=== PATIENT | female | born 1975 | race Caucasian/White ===

== ENCOUNTER 2017-03-27 16:00 | Emergency (ER) | payer OTHER ==
[~2017-03-27] VITALS: Ht 172.7 cm; Wt 80.0 kg
[2017-03-27 16:04] VITALS: BP 126/84; PULSE 89; RESP 13; TEMP 98.8; O2SAT 99
--- NOTE | 2017-03-27 16:12 | PD ---
Physical Exam Time Seen by Provider: 16:10 Narrative 42-year-old female complaining of lower dental pain and jaw pain after her teeth got knocked out by a table a day and a half ago. Can open and close jaw completely in triage. Also complaining of lower abdominal pain 3 weeks. Last menstrual period 5 days ago. History of prolapsed uterus. Denies vaginal discharge, odor, bleeding. Denies fever, vomiting. Reports nausea. Patient seen in triage. Vital signs reviewed. Patient awaiting bed placement. Data Data Last Documented VS Vital Signs Date Time Temp Pulse Resp B/P (MAP) Pulse Ox O2 Delivery O2 Flow Rate FiO2 03/27/17 16:04 98.8 89 13 126/84 (98) 99 MDM Supervised Visit with [facility]: Mali Clark Mar 27, 2017 16:12
--- NOTE | 2017-03-27 17:00 | PD ---
HPI Chief Complaint: Pain: Acute or Chronic Time Seen by Provider: 16:45 Travel History International Travel<30 days: No Contact w/Intl Traveler<30days: No Traveled to known affect area: No History of Present Illness HPI 42-year-old female presents to the emergency department for evaluation of jaw pain after getting hit with a table while trying to lift it up stairs yesterday. Patient denies any loss of consciousness with the event. Patient's left mandibular central incisor was broken as a result of this event. The portion that is remaining is vazquez discolored and tilted in a posterior angle. Patient denies any chest pain, shortness of breath, fever, chills, malaise, nausea, vomiting or diarrhea. Patient does complain of abdominal pain. The pain is diffuse but there is no guarding or rebound tenderness upon palpation. Patient states she has had a white frothy vaginal discharge for approximately 3 weeks. Patient denies any new sexual partners, chance for or history of STIs. PFSH Past Medical History ?: Not LMP: 03/22/17 Past Surgical History Appendectomy: Yes Social History Alcohol Use: No Tobacco Use: No Substance Use: No Allergies-Medications (Allergen,Severity, Reaction): Coded Allergies: No Known Allergies (Unverified , 03/27/17) Reported Meds & Prescriptions Reported Meds & Active Scripts Active Tramadol (Tramadol HCl) 50 Mg Tab 50 Mg PO Q6H PRN Review of Systems Except as stated in HPI: all other systems reviewed are Neg Physical Exam Narrative GENERAL: Well-nourished well-developed 42-year-old female in no acute distress SKIN: Focused skin assessment warm/dry. HEAD: Atraumatic. Normocephalic. EYES: Pupils equal and round. No scleral icterus. No injection or drainage. ENT: No nasal bleeding or discharge. Mucous membranes pink and moist. NECK: Trachea midline. No JVD. CARDIOVASCULAR: Regular rate and rhythm. No murmur appreciated. RESPIRATORY: No accessory muscle use. Clear to auscultation. Breath sounds equal bilaterally. GASTROINTESTINAL: Abdomen soft, non-tender, nondistended. Hepatic and splenic margins not palpable. MUSCULOSKELETAL: No obvious deformities. No clubbing. No cyanosis. No edema. NEUROLOGICAL: Awake and alert. No obvious cranial nerve deficits. Motor grossly within normal limits. Normal speech. PSYCHIATRIC: Appropriate mood and affect; insight and judgment normal. GENITOURINARY: Normal external genitalia without lesions or erythema. Vaginal vault without blood but small amount of white frothy drainage noted. Cervical os was closed with white frothy drainage. Cervical motion tenderness present. Uterus prolapsed. Bilateral adnexa tender but without masses. Data Data Last Documented VS Vital Signs Date Time Temp Pulse Resp B/P (MAP) Pulse Ox O2 Delivery O2 Flow Rate FiO2 03/27/17 16:04 98.8 89 13 126/84 (98) 99 Orders Orders Urinalysis - C+S If Indicated (03/27/17 16:18) Ed Urine Pregnancytest Poc (03/27/17 16:18) Ct Facial Bones W/O Iv Cont (03/27/17 16:39) Gc And Chlamydia Pcr (03/27/17 17:07) Wet Prep Profile (03/27/17 17:07) Ketorolac Inj (Toradol Inj) (03/27/17 18:00) Azithromycin Powd Pack (Zithromax Powd P (03/27/17 18:00) Ceftriaxone Inj (Rocephin Inj) (03/27/17 18:00) Lidocaine 1% Inj (50 Ml) (Xylocaine 1% I (03/27/17 18:00) Labs Laboratory Tests Test 03/27/17 17:16 03/27/17 17:33 Urine Color LIGHT-YELLOW Urine Turbidity HAZY Urine pH 6.0 Urine Specific [place] 1.019 Urine Protein NEG mg/dL Urine Glucose (UA) NEG mg/dL Urine Ketones NEG mg/dL Urine Occult Blood NEG Urine Nitrite NEG Urine Bilirubin NEG Urine Urobilinogen LESS THAN 2.0 MG/DL Urine Leukocyte Esterase TRACE Urine WBC 2 /hpf Urine Squamous Epithelial Cells 4 /hpf Microscopic Urinalysis Comment CULT NOT INDICATED Clue Cells (Wet Prep) NONE SEEN Vaginal Trichomonas (Wet Prep) NONE SEEN Vaginal Yeast (Wet Prep) NONE SEEN MDM Medical Decision Making Medical Screen Exam Complete: Yes Emergency Medical Condition: Yes Medical Record Reviewed: Yes Differential Diagnosis Differential diagnoses include but not limited to facial contusion, facial fracture, dental trauma, STI, bacterial vaginosis, PID Narrative Course 42-year-old female presents to emergency department for evaluation of facial trauma that she sustained yesterday when trying to transport a table upstairs. She was below the table and slipped out of her hand and hit her in the face. In the course of the trauma and the patient's left central mandibular incisor was broken. The remaining portion of the tooth that is still intact is vazquez in color and tilted in a posterior angle. Patient denies any loss of consciousness during the event. Patient denies any chest pain, fevers, shortness of breath, chills, malaise, vomiting, nausea, diarrhea or lightheadedness. Patient would also like to be evaluated for lower abdominal pain with white frothy vaginal discharge 3 weeks while she is in the emergency department. CT of the facial bones without contrast, UA, GC and chlamydia and wet prep ordered and pending. Pelvic exam performed with skilled nursing case manager resident. Cultures obtained during exam. Patient tolerated procedure well but did have cervical motion tenderness. CT of the facial bones reveals no acute bony injury within the mandible appear intact. Patient prophylactically treated for STI with 250 mg IM Rocephin with lidocaine and 1 G Azithromycin while cultures are pending. Patient given 60 mg IM Toradol for facial pain. Patient case discussed with my attending Dr. Blackwell. Patient will be discharged home with prescription for tramadol by mouth as needed for pain and a prescription for Flagyl twice a day 7 days for treatment of bacterial vaginosis. Patient given instructions to follow up with primary care physician and dentist regarding damaged tooth. Patient given instructions to return to the emergency Department with any worsening symptoms. Diagnosis Primary Impression: Facial contusion Qualified Codes: S00.83XA - Contusion of other part of head, initial encounter Additional Impressions: PID (acute pelvic inflammatory disease) Bacterial vaginosis Referrals: Dentist Primary Care Physician Patient Instructions: Facial Contusion (ED), General Instructions, Pelvic Inflammatory Disease (ED) Additional Instructions: Take tramadol as directed as needed for pain. Take Flagyl as instructed until course completed. Do not drink alcohol with Flagyl. May use ice 20 minutes on and 20 minutes off as needed for pain and inflammation Return to the emergency department with any worsening condition. Follow-up with dentist regarding injured tooth. Follow-up primary care as needed. Med/Other Pt SpecificInfo: Prescription(s) given Scripts Metronidazole (Flagyl) 500 Mg Tab 500 MG PO BID for Infection for 7 Days, #14 TAB 0 Refills Prov: Brigid Maki 03/27/17 Tramadol (Tramadol) 50 Mg Tab 50 MG PO Q6H Y for PAIN, #8 TAB 0 Refills Prov: Brigid Maki 03/27/17 Disposition: 01 DISCHARGE HOME Condition: Stable Brigid Maki Mar 27, 2017 17:00
[2017-03-27 17:47] LABS: BLOOD, URINE NEG (NEG); COMMENT (UR) CULT NOT INDICATED; CULTURE IF INDICATED CULT NOT INDICATED; GLUCOSE,URINE NEG (NEG); KETONE, URINE NEG (NEG); NITRITE,URINE NEG (NEG); SQUAMOUS EPITHELIAL CELL URINE 4 /hpf (0-5); URINE COLOR LIGHT-YELLOW (YELLW/STRAW)
--- NOTE | 2017-03-27 17:53 | RADRPT ---
EXAM DATE/TIME: 03/27/2017 17:36 [facility] COMPARISON: No previous studies available for comparison. INDICATIONS : Lower jaw pain from trauma. RADIATION DOSE: 42.98 CTDIvol (mGy) MEDICAL HISTORY : None SURGICAL HISTORY : None. ENCOUNTER: Initial ACUITY: 2 days PAIN SCORE: 7/10 LOCATION: Bilateral lower jaw region. TECHNIQUE: Volumetric scanning of the facial bones was performed. Using automated exposure contr ol and adjustment of the mA and/or kV according to patient size, radiation dose was kept as low as re asonably achievable to obtain optimal diagnostic quality images. DICOM format image data is availabl e electronically for review and comparison. FINDINGS: ORBITS: The orbital and infraorbital osseous structures are intact. The retroconal structures snyder ve a normal configuration. No radiopaque foreign bodies are seen. NASAL BONE: The nasal bone and maxillary spine are intact ZYGOMATIC ARCHES: Symmetric without evidence of fracture. SINUSES: The maxillary, ethmoid and frontal sinuses are intact. No air-fluid levels seen. Minima l mucoperiosteal thickening in the posterior left maxillary sinus antrum. NASAL CAVITY: The nasal septum is intact and midline. The lacrimal ducts are intact. SOFT TISSUES: No radiopaque foreign bodies seen. No soft-tissue swelling is seen. INTRACRANIAL: No intracranial air seen. CRIBIFORM PLATE: Grossly intact. CONCLUSION: No acute bony injury within the mandible appear intact. Wilder Moon MD on March 27, 2017 at 17:48 Board Certified Radiologist. This report was verified electronically.
[2017-03-27] MEDS ORDERED: cefTRIAXone 250 MG VIAL IM ONE (18:00)
[2017-03-27] MEDS ORDERED: LIDOCAINE HCL 1% 50 ML VIAL IM ONE (18:00)
[2017-03-27] MEDS ORDERED: KETOROLAC TROMETHAMINE 60 MG/2 ML (IM) VIAL IM ONE (18:00)
[2017-03-27] MEDS ORDERED: AZITHROMYCIN PWD FOR SUSP 1 GM PACKET PO ONE (18:00)
[2017-03-27] MEDS ORDERED: TRAM50TA PO (18:08)
[2017-03-27] MEDS ORDERED: METR-1 PO (18:16)
[2017-03-27] MEDS ORDERED: LORA-474 PO (20:12)
[2017-03-27] MEDS ORDERED: BACL20TA PO (20:12)
[2017-03-27] MEDS ORDERED: CHLO200T5 PO (20:12)
[2017-03-27] MEDS ORDERED: REME15TA PO (20:12)
[2017-03-27] MEDS ORDERED: GABA300C5 PO (20:12)
[2017-03-27] MEDS ORDERED: CELE40TA PO (20:13)
[2017-03-27 20:19] LABS: CHLAMYDIA PCR NOT DETECTED (NOT DETECT); NEISSERIA PCR NOT DETECTED (NOT DETECT)
== END 2017-03-27 19:51 | disposition home or self-care (01) ==
LOC: NEPD 16:00
DX: S00.83XA Contusion of other part of head, initial encounter (principal); N73.9 Female pelvic inflammatory disease, unspecified; N76.0 Acute vaginitis; S02.5XXA Fracture of tooth (traumatic), initial encounter for closed fracture; W20.8XXA Other cause of strike by thrown, projected or falling object, initial encounter
CPT/HCPCS: 70486; 81001; 84703; 87210; 87491; 87591; 96372; 99285; J0696; J1885

== ENCOUNTER 2017-03-27 19:27 | Emergency (ER) | payer OTHER ==
[~2017-03-27 19:27] MED LIST: METR-1 PO; TRAM50TA PO
[2017-03-27 19:28] VITALS: BP 134/80; PULSE 83; RESP 15; TEMP 98.5; O2SAT 99
--- NOTE | 2017-03-27 20:10 | PD ---
HPI Chief Complaint: Psychiatric Symptoms Time Seen by Provider: 20:08 Travel History International Travel<30 days: No Contact w/Intl Traveler<30days: No Traveled to known affect area: No History of Present Illness HPI 42 yo F c/o depression and bad thoughts for the last four weeks. Similar prior episodes have occurred. Pt carries diagnosis of bipolar disorder, schizophrenia and a personality disorder. She denies suicide plan. No HI. Compliance psychotropics is reported: thorazine, celexa, gabapentin, remeron, and vistaril reported. Pt states, "I don't trust my mindset." Her symptoms are worsening she states. She was just seen here for evaluation of vaginal discharge and face trauma and reports she had similar concerns at that time however shortly after discharge symptoms became worse. She denies drug alcohol abuse. PFSH Past Medical History Asthma: Yes Reproductive: Yes (PROLAPSE) ?: Not Past Surgical History Appendectomy: Yes Gynecologic Surgery: Yes (PROLAPSE) Social History Alcohol Use: No Tobacco Use: No Substance Use: No Allergies-Medications (Allergen,Severity, Reaction): Coded Allergies: No Known Allergies (Unverified , 03/27/17) Reported Meds & Prescriptions Reported Meds & Active Scripts Active Flagyl (Metronidazole) 500 Mg Tab 500 Mg PO BID 7 Days Tramadol (Tramadol HCl) 50 Mg Tab 50 Mg PO Q6H PRN Reported Celexa (Citalopram Hydrobromide) 40 Mg Tab 40 Mg PO DAILY Baclofen 20 Mg Tab 50 Mg PO TID Ativan (Lorazepam) 1 Mg Tab 1 Mg PO Q8H PRN Chlorpromazine (Chlorpromazine HCl) 200 Mg Tab 200 Mg PO TID PRN Remeron (Mirtazapine) 15 Mg Tab 15 Mg PO HS Gabapentin 300 Mg Cap 300 Mg PO TID Review of Systems Except as stated in HPI: all other systems reviewed are Neg General / Constitutional: No: Fever Physical Exam Narrative GENERAL: 42-year-old female pleasant well-nourished well-developed SKIN: Warm and dry. HEAD: Atraumatic. Normocephalic. EYES: Pupils equal and round. No scleral icterus. No injection or drainage. ENT: No nasal bleeding or discharge. Mucous membranes pink and moist. NECK: Trachea midline. No JVD. CARDIOVASCULAR: Regular rate and rhythm. RESPIRATORY: No accessory muscle use. Clear to auscultation. Breath sounds equal bilaterally. GASTROINTESTINAL: Abdomen soft, non-tender, nondistended. Hepatic and splenic margins not palpable. MUSCULOSKELETAL: Extremities without clubbing, cyanosis, or edema. No obvious deformities. NEUROLOGICAL: Awake and alert. No obvious cranial nerve deficits. Motor grossly within normal limits. Five out of 5 muscle strength in the arms and legs. Normal speech. PSYCHIATRIC: Cooperative. Denies plan for HI/SI. Data Data Last Documented VS Vital Signs Date Time Temp Pulse Resp B/P (MAP) Pulse Ox O2 Delivery O2 Flow Rate FiO2 03/27/17 19:28 98.5 83 15 134/80 (98) 99 Room Air VS reviewed MDM Medical Decision Making Medical Screen Exam Complete: Yes Emergency Medical Condition: Yes Differential Diagnosis Altered mental status/psychosis due to infection/environmental exposure/ metabolic abnormality, polypharmacy, alcohol abuse/intoxication, illicit or prescribed drug abuse, malingering/secondary gain, non-organic psychiatric disease Narrative Course In keeping with ACEP guidelines routine laboratory evaluation will be deferred. Pt has no medical complaint. Psychiatry screen has been ordered for this patient. Diagnosis Primary Impression: Suicidal ideation Additional Impression: Schizophrenia Qualified Codes: F20.9 - Schizophrenia, unspecified Onur Blackwell MD Mar 27, 2017 20:10
[2017-03-27] MEDS ORDERED: BACL20TA PO (20:12)
[2017-03-27] MEDS ORDERED: GABA300C5 PO (20:12)
[2017-03-27] MEDS ORDERED: CHLO200T5 PO (20:12)
[2017-03-27] MEDS ORDERED: LORA-474 PO (20:12)
[2017-03-27] MEDS ORDERED: REME15TA PO (20:12)
[2017-03-27] MEDS ORDERED: CELE40TA PO (20:13)
[2017-03-28] MEDS ORDERED: ACETAMINOPHEN 325 MG TAB PO ONE (02:15)
[2017-03-28 06:10] VITALS: BP 104/63; PULSE 68; RESP 16; O2SAT 99
[2017-03-28 07:00] VITALS: BP 110/78; PULSE 76; RESP 18; TEMP 97.8; O2SAT 99
--- NOTE | 2017-03-28 09:43 | PD ---
Data Data Last Documented VS Vital Signs Date Time Temp Pulse Resp B/P (MAP) Pulse Ox O2 Delivery O2 Flow Rate FiO2 03/28/17 07:00 16 03/28/17 07:00 97.8 18 110/78 (89) 99 Room Air Orders Orders Psych Screen (03/27/17 21:30) Acetaminophen (Tylenol) (03/28/17 02:15) Diet Regular Basic (03/28/17 Breakfast) Ibuprofen (Motrin) (03/28/17 09:45) MDM Supervised Visit with [facility]: No Narrative Course Patient requested something for her toothache. She has no chronic medical problems, no allergies, no history of renal insufficiency. Ibuprofen was ordered for her toothache. Diagnosis Primary Impression: Suicidal ideation Additional Impression: Schizophrenia Qualified Codes: F20.9 - Schizophrenia, unspecified Andria Quinn MD Mar 28, 2017 09:42
[2017-03-28] MEDS ORDERED: IBUPROFEN 800 MG TAB PO ONE ×2 (09:45→18:30)
== END 2017-03-28 19:13 | disposition home or self-care (01) ==
LOC: NEPD 19:27
DX: R45.851 Suicidal ideations (principal); F20.9 Schizophrenia, unspecified; K08.89 Other specified disorders of teeth and supporting structures; Z87.09 Personal history of other diseases of the respiratory system
CPT/HCPCS: 99283